=== PATIENT | male | born 1945 ===

== ENCOUNTER 2016-10-20 21:21 | Inpatient (IN) | payer MEDICARE, OTHER ==
--- NOTE | ~2016-10-20 | HP ---
Unit #: [id number] #: [id number] Patient: MAGDA HERNANDEZ [id number] [facility] [address] [facility]. [place], [place] [address] [id number] I MR#: [id number] NAME: MAGDA HERNANDEZ ROOM: [facility] Age: 70 Sex: M Admission Date: 10/20/2016 : 1945 Attending Physician: Iris Johnson M.D. HISTORY AND PHYSICAL CHIEF COMPLAINT Left leg swelling, rash and pain for four days. DISCUSSION This is a very pleasant 70-year-old very gentleman with a history of hypertension, history of GERD, history of gout, anxiety, insomnia, TIA, remote history of prostate cancer treated in the past, drinks two to three drinks, glasses of wine, on daily basis. He presented to [facility] with chief complaint of having left leg redness, swelling and rash which started four days ago and progressively got worse. He came to the emergency room. He underwent a CT scan of the whole left leg which shows diffuse cellulitis from thigh to ankle and patient eventually has been admitted here in [facility]. He denies any other complaint, no fever, no chills, no cough, no shortness of breath, no wheezing, no other complaint. PAST MEDICAL HISTORY 1. History of GERD. 2. Hypertension. 3. History of gout. 4. History of insomnia and anxiety. 5. TIA in the past. 6. Remote history of prostate cancer treated in the past. PAST SURGICAL HISTORY History of skin graft to same left leg. HOME MEDICATIONS Home medications I do not have those at this time but medications are followin. Norvasc one tablet daily. 2. Coreg b.i.d. 3. Omeprazole. 4. Viagra. 5. Ambien. 6. Allopurinol. 7. Buspirone. 8. Hydroxyzine. SOCIAL HISTORY Used to smoke but quit 20 years ago, he drinks two to three glasses of wine on a daily basis. FAMILY HISTORY Unit #: [id number] #: [id number] Patient: MAGDA HERNANDEZ Mother with rheumatoid arthritis and diabetes, heart disease in the family. REVIEW OF SYSTEMS CONSTITUTIONAL: No fever. No chills. No recent weight loss. CARDIOVASCULAR: No chest pain. No diaphoresis. No palpitation. PULMONARY: No cough. No wheezing. GASTROINTESTINAL: No nausea. No vomiting. No diarrhea. GENITOURINARY: No dysuria. ENDOCRINE: No polyuria. No polydipsia. MUSCULOSKELETAL: Reports left leg pain since last four days. SKIN: Rash and peeling of the skin of left lower lobe for last four days. NEUROLOGICAL: No headache. No loss of consciousness. No dizziness. HEMATOLOGICALLY: No bruise. PHYSICAL EXAMINATION GENERAL: On examination middle-aged man lying in the bed comfortably, currently not in any distress. On general examination he is alert, awake, oriented x3. VITAL SIGNS: Current vitals are following: Temperature 98.3, heart rate 68, respiratory rate is 18, blood pressure 143/80. HEENT: On HEENT examination pupils equally react to light and accommodation. Head is normocephalic and atraumatic. NECK: Supple. No JVD. No thyromegaly. HEART: S1, S2. Regular rate and rhythm. LUNGS: Clear to auscultation bilaterally. No rhonchi. No wheezing. ABDOMEN: Abdomen is soft, nontender and nondistended. Bowel sounds positive. EXTREMITIES: Left lower leg up to the thigh has erythema and is mildly warm and edematous rash with peeling of skin/sloughing of skin. Positive mild swelling in whole left leg. Right leg no edema. No clubbing. No cyanosis. NEUROLOGIC: No focal neurologic deficit. Cranial nerves II-XII intact. Power 5/5 on both sides. SKIN: Developing rash in the left lower leg, edematous rash. DIAGNOSTIC STUDIES LABORATORY: Workup is following: Sodium 133, potassium is 4, chloride 98, Co2 28, glucose 120, BUN 16, creatinine 0.83, LFTS within normal limits, white count 6, hemoglobin 13, hematocrit 38, platelet is 330. UA is negative. IMAGING: He has a CT scan of the left leg which shows diffuse soft tissue edema from thigh to left ankle. ASSESSMENT AND PLAN 1. Left leg cellulitis from thigh to ankle: Will start the patient on Zosyn, vancomycin and will also get a venous Doppler to rule out DVT. 2. History of hypertension: Currently will continue his home medications. 3. Acid reflux: Continue the omeprazole. 4. History of gout. 5. History of anxiety and insomnia: Continue buspirone and amlodipine. 6. He drinks alcohol, two to three cristiano on a daily basis: Will monitor. 7. DVT prophylaxis: Will place the patient on Lovenox. Unit #: [id number] #: [id number] Patient: MAGDA HERNANDEZ Dictated by Elmer Miranda/meena TD: 10/20/2016 22:53 JOB #: [id number] HISTORY AND PHYSICAL X X HISTORY AND PHYSICAL
--- NOTE | ~2016-10-20 | DS ---
Unit #: [id number] #: [id number] Patient: MAGDA HERNANDEZ [id number] [address] [place], [place] [address] [id number] I MR#: [id number] NAME: MAGDA HERNANDEZ ROOM: [facility] Age: 70 Sex: M Admission Date: 10/20/2016 : 1945 Discharge Date: 10/22/2016 Attending Physician: Daryn Alarcon M.D. DISCHARGE SUMMARY PRIMARY DIAGNOSIS Diffuse cellulitis of the left leg. SECONDARY DIAGNOSES 1. Hypertension. 2. Gastroesophageal reflux disease. 3. Anxiety, not otherwise specified. 4. Bradycardia, symptomatic, induced by Coreg. HOSPITAL COURSE The patient was admitted to the hospital, started on Zosyn and vancomycin with marked improvement over the first 36 hours. Blood cultures were not done and skin cultures were not felt to be useful in identifying the cause of organism. He did not have any drainable abscess. He did have an ultrasound of the left leg to rule out any DVT. He did have note of a previous vascular graft with one of his endogenous veins to the left lower leg previously but it does not appear that is directly related or infected and instead this is a relatively simple albeit inpatient IV antibiotic requiring cellulitis. The patient did have episodes of bradycardia that were intermittent where his heart rate would drop down into the 30s where he would have a sensation of chest pressure and feeling like he was going to pass out. We stopped the Coreg and his lowest heart rates at that point would be down into the 50s and they were asymptomatic at that point. I have advised him to follow up with his assistant technician in two weeks to discuss possible stress testing and have an evaluation to consider whether it would be safe to restart the Coreg at that time. DISCHARGE DISPOSITION To home. DISCHARGE STATUS Stable. DISCHARGE ACTIVITY Ad alina. DISCHARGE DIET A 2000 mg sodium heart healthy diet. DISCHARGE FOLLOWUP Discharge followup is with his PCP in two to three weeks and with his assistant technician in two to three weeks. Unit #: [id number] #: [id number] Patient: MAGDA HERNANDEZ DISCHARGE MEDICATIONS 1. Doxycycline 100 mg p.o. b.i.d. for eight days. 2. Lotrimin 1% cream apply to left leg twice daily until left leg is normal. 3. Buspirone 10 mg p.o. t.i.d. 4. Ambien 10 mg p.o. nightly p.r.n. insomnia. 5. Norvasc 5 mg p.o. daily. 6. Ditropan 10 mg p.o. daily. 7. VESIcare 5 mg p.o. daily. 8. Allopurinol 300 mg p.o. daily. Dictated by... Daryn Alarcon M.D. GREGORIA/sebastien TD: 10/23/2016 09:50 JOB #: [id number] DISCHARGE SUMMARY X Daryn Alarcon MD X DISCHARGE SUMMARY
--- NOTE | ~2016-10-20 | US85 ---
[facility] A Service [facility] RADIOLOGY TEXT RESULTS PATIENT: MAGDA HERNANDEZ LOCATION: [facility] : [birth year] UNIT #: [id number] AGE: [address]: Daryn Alarcon MD SEX: M ORDER DR: [id number] [facility]. [place], [place] [address] [id number] MR#: [id number] Acc #: [id number] NAME: MAGDA HERNANDEZ : 1945 SEX: M STUDY DATE/TIME: 10/21/2016 8:26 UNIT: [address] ROOM: [facility] STUDY DESCRIPTION: [employer] Attending Physician: Daryn Alarcon M.D. Ordering Physician: Eugenie Myers M.D. MEDICAL IMAGING REPORT This report is preliminary unless electronic signature is present EXAM Left lower extremity venous ultrasound INDICATION Left lower extremity pain and swelling for 3 days. Previous skin graft on that leg. TECHNIQUE Venous ultrasound examination of the left lower extremity was performed using grayscale, spectral Doppler and color flow Doppler imaging. FINDINGS The examination is negative. There is no evidence of left lower extremity deep venous thrombus from the groin to the lower calf. Visualized greater saphenous vein is also patent. IMPRESSION Negative examination. No evidence of left lower extremity deep venous thrombosis. Dictated by... Brian Ochoa M.D. THIS IS AN ELECTRONICALLY VERIFIED REPORT Brian Ochoa M.D. at 10/22/2016 3:06 PM MAHIN/rnr TD: 10/22/2016 01:04 JOB #: [id number] [facility] A Service [facility] RADIOLOGY TEXT RESULTS PATIENT: MAGDA HERNANDEZ LOCATION: [facility] : [birth year] UNIT #: [id number] AGE: [address]: Daryn Alarcon MD SEX: M ORDER DR: MEDICAL IMAGING REPORT COPY
[2016-10-20] MEDS ORDERED: NORVASC PO (23:04)
[2016-10-20] MEDS ORDERED: AMBIEN10 MG PO (23:05)
[2016-10-20] MEDS ORDERED: CARVEDILOL25 MG PO (23:05)
[2016-10-20] MEDS ORDERED: ALLOPURINOL300 MG PO (23:06)
[2016-10-20] MEDS ORDERED: BUSPIRONE HCL10 M1 PO (23:07)
[2016-10-20] MEDS ORDERED: DITROPAN PO (23:08)
[2016-10-20] MEDS ORDERED: VESICARE5 MG PO (23:09)
[2016-10-21 05:47] LABS: BASOPHIL% 0.2 % (0-2.5); DIFF IND NO; EOSINOPHIL# 0.1 X10e3 (0-0.7); EOSINOPHIL% 2.1 % (0.0-7.0); HEMOGLOBIN 12.2 gm/dL (13.0-16.0); LYMPHOCYTE# 0.9 X10e3 (1.0-3.5); LYMPHOCYTE% 13.1 % (17.0-45.0); MEAN CELL VOLUME 97.2 FL (83-96); MEAN CORPUSCULAR HEMOGLOBIN 32.9 PG (28-34); MEAN CORPUSCULAR HGB CONC 33.8 g/dL (30-36); MEAN PLATELET VOLUME 6.5 FL (6.5-11.5); MONOCYTE% 14.2 % (3.0-12.0); NEUTROPHIL# 4.8 X10e3 (1.5-7.1); NEUTROPHIL% 70.4 % (40-75); PLATELET COUNT 263 X10e3 (140-420); RED BLOOD COUNT 3.71 X10e (3.90-5.60); RED CELL DISTRIBUTION WIDTH 13.9 % (11.0-15.5); WHITE BLOOD COUNT 6.8 X10e3 (4.0-10.5)
[2016-10-21 06:25] LABS: BLOOD UREA NITROGEN 14 mg/dL (9-23); CALCIUM SERUM 8.5 mg/dL (8.4-10.2); CARBON DIOXIDE 24 mmol/L (22-31); CHLORIDE 103 mmol/L (100-111); GLOM FILT RATE Estimated ABOVE60 mL/min (>60); GLUCOSE FASTING 90 mg/dL (70-110); SODIUM 136 mmol/L (135-145)
[2016-10-22] MEDS ORDERED: DOXYCYCLINE HY100 M3 PO (13:30)
[2016-10-22] MEDS ORDERED: LOTRIMIN 1% CR30 GM (13:31)
== END 2016-10-22 15:13 | disposition home or self-care (01) | DRG 603 ==
LOC: CEDOF 21:21 → C3A PCU 21:31
PROVIDERS: Internal Medicine
DX: L03.116 Cellulitis of left lower limb (principal); R00.1 Bradycardia, unspecified; I10 Essential (primary) hypertension; K21.9 Gastro-esophageal reflux disease without esophagitis; F41.9 Anxiety disorder, unspecified; Z86.73 Personal history of transient ischemic attack (TIA), and cerebral infarction without residual deficits; Z72.89 Other problems related to lifestyle; G47.00 Insomnia, unspecified; Z85.46 Personal history of malignant neoplasm of prostate; T44.7X5A Adverse effect of beta-adrenoreceptor antagonists, initial encounter; Y92.9 Unspecified place or not applicable
CPT/HCPCS: 80048; 85025; 93971; J1650; J2543; J3370